=== PATIENT | female | born 1975 | race Two or more races ===

== ENCOUNTER 2022-05-24 01:35 | Emergency (ER) | payer MEDICAID, OTHER ==
[~2022-05-24] VITALS: Ht 154.9 cm; Wt 65.8 kg
--- NOTE | 2022-05-24 01:45 | NUR ---
Bibself from home C/o migraine headache since 12 noon, +Nausea. Pt A/Ox4. Tolerating R/A well with no sob. Pt Ambulatory with steady gait. Safety Measures in place.
[2022-05-24] MEDS ORDERED: SUMATRIPTAN SUCCINATE 6 MG/0.5 ML VIAL SQ ONE ×2 (01:56→02:00)
[2022-05-24] MEDS ORDERED: diphenhydrAMINE HCL 50 MG/ML VIAL ONE (01:57)
[2022-05-24] MEDS ORDERED: IV NS 0.9% 1,000 ML BAG IV ONE (02:00)
[2022-05-24] MEDS ORDERED: diphenhydrAMINE HCL 50 MG/ML VIAL IV ONE (02:00)
--- NOTE | 2022-05-24 02:08 | NUR ---
PT TAKEN TO CT VIA [facility]
--- NOTE | 2022-05-24 02:13 | NUR ---
back from ct
--- NOTE | 2022-05-24 02:13 | NUR ---
PT RETURNED TO ER BED [address]
[2022-05-24] MEDS ORDERED: SUMA50TA PO (03:07)
[2022-05-24 04:17] VITALS: BP 125/79
--- NOTE | 2022-05-24 04:17 | NUR ---
Patient discharged to home in stable condition. RX Written and verbal after care instructions given. Patient verbalizes understanding of instruction. pt ambulatory with a steady gait IV removed. Catheter intact and site benign. Pressure and 4x4 applied to site. No bleeding noted.
== END 2022-05-24 04:12 | disposition home or self-care (01) ==
LOC: ER 01:39
DX: G43.909 Migraine, unspecified, not intractable, without status migrainosus (principal); Z79.899 Other long term (current) drug therapy
CPT/HCPCS: 99284; 96374; 70450; 96361; 96372; J1200; J3030; J7030